=== PATIENT | male | born 1985 | race African-American/Black ===

== ENCOUNTER 2016-12-21 10:10 | Emergency (ER) | payer SELFPAY ==
[2016-12-21 12:58] LABS: BASOPHILS 0.3 % (0.0-2.0); EOSINOPHILS 4.7 % (0-7); HEMATOCRIT 46.2 % (42.0-54.0); HEMOGLOBIN 16.1 g/dL (13.5-17.5); IMMATURE GRANULOCYTES 0.4 % (0-5); LYMPHOCYTES 27.2 % (15-50); MCHC 34.8 g/dL (31.0-37.0); MCV 88.8 fL (80.0-100.0); MEAN PLATELET VOLUME 10.5 fL (7.4-10.4); MONOCYTES 8.5 % (2-11); NEUTROPHILS 58.9 % (40-80); PLATELET COUNT 238 10x3/uL (130-400); RDW 13.4 % (11.5-14.5); WBC 11.4 10x3/uL (4.8-10.8)
[2016-12-21 13:14] LABS: ALBUMIN 4.2 g/dL (3.4-5.0); ALKALINE PHOSPHATASE 109 U/L (46-116); ALT (SGPT) 38 U/L (10-68); BILIRUBIN - TOTAL 0.32 mg/dL (0.2-1.3); CALC OSMOLALITY 276 mosm/kg (275-300); CALCIUM 8.8 mg/dL (8.5-10.1); CARBON DIOXIDE 30.2 mmol/L (21.0-32.0); CHLORIDE - SERUM 103 mmol/L (98-107); CREATININE - SERUM 0.8 mg/dL (0.6-1.3); GLUCOSE 82 mg/dL (74-106); PROTEIN - SERUM 7.9 g/dL (6.4-8.2); SODIUM 141 mmol/L (136-145); UREA NITROGEN 4 mg/dL (7-18); eGFR NON AFRICAN AMERICAN > 90 mL/min (90-120)
[2016-12-21 13:22] LABS: CKMB 1.1 U/L (0.0-3.6); CREATINE KINASE 322 UL (21-232); PHENYTOIN (DILANTIN) 11.3 ug/mL (10.0-20.0)
== END 2016-12-21 16:41 | disposition home or self-care (01) ==
LOC: D.ER 10:10
PROVIDERS: Nurse Practitioner Family
DX: K21.9 Gastro-esophageal reflux disease without esophagitis (principal)

== ENCOUNTER 2019-04-20 10:24 | Emergency (ER) | payer MEDICARE ==
[~2019-04-20] VITALS: Ht 182.9 cm; Wt 77.3 kg
[2019-04-20 10:27] VITALS: Ht 182.9 cm; Wt 77.3 kg
[2019-04-20] MEDS ORDERED: AMOXICILLIN500 M1 PO (10:40)
[2019-04-20] MEDS ORDERED: HYDROCODON-ACE1 EAC7 PO (10:40)
[2019-04-20 10:57] VITALS: BP 136/84
== END 2019-04-20 10:58 | disposition home or self-care (01) ==
LOC: D.ER 10:24
DX: K02.9 Dental caries, unspecified (principal); K04.7 Periapical abscess without sinus